=== PATIENT | male | born 1955 | race Caucasian/White ===

== ENCOUNTER 2017-06-23 18:09 | Observation (INO) | payer BC ==
[~2017-06-23] VITALS: Ht 185.4 cm; Wt 92.1 kg
--- NOTE | 2017-06-23 18:40 | Emergency Room Report ---
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 N Clinical Suspician of Infection? N Mental Status: 1 - Regular (Normal Baseline) Sepsis Risk:Low Sepsis Risk Have you (or family members/close friends) recently traveled outside the [place]? N If Yes, where/when: Have you had exposure to infectious disease within the past month? N TB? Other? Specify: Patient complains of LEFT flank pain and LEFT mid quadrant area pain sharp achy in nature and states it feels like past kidney stones he has achy comes and goes and started this afternoon at 1 PM associated with nausea and vomiting. (Jose Flowers MD) ALLERGIES Coded Allergies: No Known Allergies (06/23/17) Home Medications Reported Medications NEBIVOLOL HCL (Bystolic) 5 MG PO DAILY #90 Rosuvastatin Calcium 10 MG PO DAILY #45 (Flako ZULUAGA,Leilani Clinton) History Medical History General Angina: No IA: No Hypertension? Yes Hyperlipidemia? No CHF? No COPD? No Asthma? No CVA? No Seizures? No Diabetes? No Stones? Yes GB Disease: No MRSA? No TB? No Cancer? No Immunization Hx DT/Tetanus Unknown Surgical Hx Previous Surgery?Y BACK SURG GB SURG Social History Smoking Hx Smoker: Never Smoker Tobacco: No Alcohol Alcohol: No (Jose Flowers MD) Review of Systems All Other Systems Reviewed and Negative (Jose Flowers MD) Physical Exam Vital Signs Vital Signs Date Time Temp Pulse Resp B/P Pulse O2 O2 Flow FiO2 Ox Delivery Rate 06/23 2017 98.2 74 20 136/74 99 06/23 1902 20 06/23 1822 97.8 90 18 98 General Appearance: Nontoxic Head: Normocephalic, without obvious abnormality, atraumatic. Eyes: conjunctiva/corneas clear ENT: Mucous membranes moist. Neck: No jugular venous distention. Cardiac: regular rate and rhythm Lungs: Clear to auscultation bilaterally Abdomen: left mid quadrant tenderness, Nondistended, positive bowel sounds , no rebound : left CVA tenderness Extremities: no edema Musculoskeletal: No chest wall tenderness Skin: No rashes or lesions to exposed skin. Neurologic: Alert. No gross focal deficits Psychiatric: Normal affect (Kristie ZULUAGA, Jose) General Appearance mild distress Respiratory Status No: respiratory distress. Cardiovascular normal exam Neurologic alert (Jose Flowers MD) Medical Decision Making LABS/Meds/Orders Pt receiving controlled substance in ED? No Comment 640pm initial workup has been ordered. kidney stone versus other. will transfer care to oncoming MD in 20 minutes. Results/Orders Laboratory Tests 06/23/171899: Troponin I < 0.02 06/23/171899: Sodium 137, Potassium 3.4 L, Chloride 103, Carbon Dioxide 25, BUN 22 H, Creatinine 1.4 H, Estimated Creat Clear 69, Estimated GFR (MDRD) 51, Glucose 143 H, Calcium 9.6, Total Bilirubin 0.5, AST 24, ALT 37, Alkaline Phosphatase 59, Total Protein 8.0, Albumin 4.2, Globulin 3.8 H, Albumin/Globulin Ratio 1.1, Lipase 129, WBC 15.0 H, RBC 4.43 L, Hgb 13.6 L, Hct 41.7 L, MCV 94.1, RDW 12.3, Plt Count 290, MPV 9.7, Gran % 90.6 H, Gran # 13.6 H, Total Counted 100, Lymphocytes % 4.7 L, Monocytes % 3.1, Eosinophils % 1.4, Basophils % 0.2, Neutrophils 91 H, Lymphocytes (Manual) 5 L, Lymphocytes # 0.7, Monocytes ( Manual) 4, Monocytes # 0.5, Eosinophils # 0.2, Basophils # 0.0, Platelet Estimate NORMAL, PUBS MCHC 32.5, MCH 30.6 06/23/171834: Urine Color YELLOW, Urine Appearance CLEAR, Urine pH 6.0, Ur Specific [place] 1.025, Urine Protein NEGATIVE, Urine Ketones 1+ H, Urine Blood NEGATIVE, Urine Nitrate NEGATIVE, Urine Bilirubin NEGATIVE, Urine Urobilinogen 0.2, Ur Leukocyte Esterase NEGATIVE, Urine WBC OCC, Ur Squamous Epith Cells OCC, Urine Glucose NEGATIVE Current Medication Orders Sig/Maureen Start time Last Medication Dose Route Stop Time Status Admin Ketorolac 30 MG ONCE ONE 06/23 1900 DC 06/23 Tromethamine IV 06/23 Ketorolac 0 .STK-MED ONE 09/29 1831 DC Tromethamine .ROUTE Ondansetron HCl 0 .STK-MED ONE 06/23 183 DC .ROUTE Sodium Chloride 1,000 ML .STK-MED ONE 06/23 183 DC IV Ondansetron HCl 4 MG ONCE ONE 06/23 1830 DC 06/23 IV 06/23 1831 1902 Sodium Chloride 10 ML PRN PRN 06/23 1830 AC IV 06/24 1826 Sodium Chloride 1,000 ML .Q1H1M 06/23 1830 DC 06/23 IV 06/23 1930 1902 Sodium Chloride 10 ML PRN PRN 06/23 1830 AC IV 06/24 1827 Orders Procedure Date/time Status DIET-NOTHING BY MOUTH 06/24 B Active DIFFERENTIAL-WBC 06/[address] ABD & PELVIS W/O CONTRAST 06/[address] ABD/PELVIS REQ 06/23 184 Complete ELECTROCARDIOGRAM REQUEST 06/23 183 Active CHEST(2 VIEWS-NOT PORTABLE) 06/23 183 Active TROPONIN I 06/23 183 Complete IV SALINE LOCK 06/23 182 Active URINALYSIS/COMPLETE 06/23 1825 Complete LIPASE 06/23 182 Complete CBC WITH AUTO DIFF 06/23 182 Complete CHEM 12 PROFILE 06/23 182 Complete Departure Departure Disposition Still a Patient Condition STABLE ED Critical Care Critical Care No (Jose Flowers MD) Departure Time of Disposition 2041 Clinical Impression Primary Impression: Flank pain Secondary Impressions: Abdominal pain Qualifiers: Abdominal location: left lower quadrant Qualified Code: R10.32 - Left lower quadrant pain Appendicitis Qualifiers: Appendicitis type: acute appendicitis Acute appendicitis type: unspecified acute appendicitis type Qualified Code: K35.80 - Unspecified acute appendicitis Referrals Vinicio Lopez MD (Leilani Arriola MD) at 195 at 204
[2017-06-23 18:57] LABS: URINE BILIRUBIN - DIPSTICK NEGATIVE (NEG); URINE BLOOD NEGATIVE (NEG)
[2017-06-23 19:00] LABS: URINE SQUAMOUS CELLS OCC #/hpf (OCC)
[2017-06-23 19:10] LABS: HEMOGLOBIN 13.6 g/dL (14.1-18.0); LYMPH # 0.7 K/mm3 (0.7-4.5); LYMPH % 4.7 % (10-50)
[2017-06-23 19:51] LABS: NEUTROPHILS 91 % (42-76)
[2017-06-23] MEDS ORDERED: ROSUVASTATIN CA10 MG PO (20:37)
[2017-06-23] MEDS ORDERED: BYSTOLIC5 MG PO (20:37)
[2017-06-23 21:18] VITALS: BP 125/84
[2017-06-24] VITALS (16 sets, daily range): BP systolic 107–139; BP diastolic 64–84
[2017-06-24 07:09] LABS: HEMOGLOBIN 12.6 g/dL (14.1-18.0); LYMPH # 1.3 K/mm3 (0.7-4.5); LYMPH % 13.9 % (10-50)
--- NOTE | 2017-06-24 07:27 | CONSULT NOTE ---
Standard Demographics Patient Demo Date of Consultation: 06/24/17 Referring Provider: Juan Mccormack MD Reason for Consultation: Abdominal Pain PRIMARY DIAGNOSIS: APPENDICITIS Allergies: Coded Allergies: No Known Allergies (06/23/17) History of Present Illness Chief Complaint: Abdominal Pain History of Present Illness: Patient is a pleasant 61-year-old white male. He was in his usual state of health until 1 PM yesterday on 06/23/17. At that point he developed left-sided flank pain. He was concerned that he may have a kidney stone. This persisted and he presented to the emergency department. He was found have a mild leukocytosis and underwent CT scan. This revealed findings of a prominent appendix with appendicoliths without appendiceal stranding. Surgery was contacted and recommendations were for admission given the atypical presentation. Past Medical History Reports: hypertension. Surgical History Previous Surgery?Y BACK SURG GB SURG Allergies Coded Allergies: No Known Allergies (06/23/17) Medications: Reported Medications NEBIVOLOL HCL (Bystolic) 5 MG PO DAILY #90 Rosuvastatin Calcium 10 MG PO DAILY #45 Smoking Hx Tobacco: No Smoker: Never Smoker Type: N/A Packs/day: N/A Are you/the child exposed to second-hand smoke: No Alcohol Alcohol: No Hx of Drug Use Drug Use? No Review of Systems Constitutional No: chills. Skin No: abrasions. Immune/allergy No: anaphalaxis. Eyes No: vision loss. ENT No: hearing loss. Respiratory No: shortness of air. Cardiovascular No: chest pain. GI Positive for: abdomen, constipation. (male) No: hematuria. Musculoskeletal No: extremity swelling. Heme No: adenopathy. Endocrine No: cold intolerance. Neurological No: change in LOC. Physical Exam Exam General appearance no acute distress, alert Respiratory clear to auscultation Cardiovascular normal heart sounds Abdomen soft Findings/Data Tender in RIGHT lower quadrant Plan Plan: This morning patient states that his tenderness and discomfort is more in the RIGHT lower quadrant. On examination he has some minor guarding without rebound over McBurney's point. Given the findings on examination at this time and CT scan he most likely has evolving appendicitis. Plan for appendectomy. at 0729
--- NOTE | 2017-06-24 08:40 | HISTORY AND PHYSICAL REPORT ---
Demographics: Admit date: 06/23/17 Chief complaint: Lower quadrant abdominal pain PRIMARY DIAGNOSIS: APPENDICITIS Allergies: Coded Allergies: No Known Allergies (06/23/17) History of present illness: History of present illness: 61-year-old white male, with very mild hypertension and hyperlipidemia this been under good control. Otherwise extremely healthy. Presented to the emergency department with 3 days of vague abdominal pain that had localized into the RIGHT lower quadrant. CT scan was done because of his suspicious clinical presentation which showed evidence of early appendicitis and patient was admitted to hospital for pain control and surgical consultation. Past medical history: Family HX Diabetes No CAD Yes Hypertension Yes Hyperlipidemia Yes Cancer No TB No Immunization HX DT/Tetanus 5-10 Years Ago Pneumonia Received In Past TB Test in last year No General Angina: No SC: No Hypertension? Yes Hyperlipidemia? No CHF? No COPD? No Asthma? No CVA? No Seizures? No Diabetes? No Stones? Yes GB Disease: No MRSA? No TB? No Cancer? No Past Surgical HX Previous Surgery?Y BACK SURG GB SURG Current home meds: Reported Medications NEBIVOLOL HCL (Bystolic) 5 MG PO DAILY #90 Rosuvastatin Calcium 10 MG PO DAILY #45 Social Hx: Smoking HX Tobacco No Type N/A Packs/day N/A Are you/the child exposed to second-hand smoke: No Alcohol Alcohol: No Hx of Drug Use Drug Use? No Patien't marital status is Patient's support system is excellent Review of systems: Constitutional diaphoresis. Respiratory No: no symptoms reported. Cardiovascular No no symptoms reported Gastrointestinal/Abdominal see HPI Genitourinary No: no symptoms reported. Musculoskeletal No: no symptoms reported. Neurological No: see HPI. Exam: Lab data for last 24 hours: Laboratory Tests 06/24/17 0630: Sodium 141, Potassium 4.0, Chloride 108 H, Carbon Dioxide 26, BUN 18, Creatinine 1.3, Estimated Creat Clear 77, Estimated GFR (MDRD) 56, Glucose 98, Calcium 8.6, WBC 9.5, RBC 4.07 L, Hgb 12.6 L, Hct 38.0 L, MCV 93.2, RDW 12.5, Plt Count 254, MPV 9.1, Gran % 77.7, Gran # 7.4, Lymphocytes % 13.9, Monocytes % 7.5, Eosinophils % 0.7, Basophils % 0.1, Lymphocytes # 1.3, Monocytes # 0.7, Eosinophils # 0.1, Basophils # 0.0, PUBS MCHC 33.3, MCH 31.1 06/23/171899: Troponin I < 0.02 06/23/171899: Sodium 137, Potassium 3.4 L, Chloride 103, Carbon Dioxide 25, BUN 22 H, Creatinine 1.4 H, Estimated Creat Clear 69, Estimated GFR (MDRD) 51, Glucose 143 H, Calcium 9.6, Total Bilirubin 0.5, AST 24, ALT 37, Alkaline Phosphatase 59, Total Protein 8.0, Albumin 4.2, Globulin 3.8 H, Albumin/Globulin Ratio 1.1, Lipase 129, WBC 15.0 H, RBC 4.43 L, Hgb 13.6 L, Hct 41.7 L, MCV 94.1, RDW 12.3, Plt Count 290, MPV 9.7, Gran % 90.6 H, Gran # 13.6 H, Total Counted 100, Lymphocytes % 4.7 L, Monocytes % 3.1, Eosinophils % 1.4, Basophils % 0.2, Neutrophils 91 H, Lymphocytes (Manual) 5 L, Lymphocytes # 0.7, Monocytes ( Manual) 4, Monocytes # 0.5, Eosinophils # 0.2, Basophils # 0.0, Platelet Estimate NORMAL, PUBS MCHC 32.5, MCH 30.6 06/23/171834: Urine Color YELLOW, Urine Appearance CLEAR, Urine pH 6.0, Ur Specific [place] 1.025, Urine Protein NEGATIVE, Urine Ketones 1+ H, Urine Blood NEGATIVE, Urine Nitrate NEGATIVE, Urine Bilirubin NEGATIVE, Urine Urobilinogen 0.2, Ur Leukocyte Esterase NEGATIVE, Urine WBC OCC, Ur Squamous Epith Cells OCC, Urine Glucose NEGATIVE Admission vital signs: 1ST Vital Signs Result Date Time Pulse Ox 98 06/23 1822 Temp 97.8 06/23 1822 Pulse 90 06/23 1822 Resp 18 06/23 1822 B/P 136/74 06/23 2017 O2 Delivery ROOM AIR 06/23 2118 Exam General appearance: normal appearance, alert, awake Eyes: normal exam, anicteric ENT: normal exam, mucous membranes moist Neck: normal inspection, non-tender, no carotid bruit, no JVD Cardiovascular: normal exam Respiratory: normal exam, clear to auscultation ABD: non-distended, rebound, tenderness (in both lower quadrants) Genitourinary: normal voiding & quantity Extremities: normal exam Musculoskeletal: normal exam Skin: normal exam, intact, normal color Neuro: normal exam, alert, no deficit Plan: Problem List 1. Abdominal pain 2. Appendicitis Plan: Admit to hospital, pain control, surgical consultation. at 0840
--- NOTE | 2017-06-24 10:01 | Anesthesia Record ---
Anesthesia Record Part I Total IV fluids: 1200 EBL (ml): 0 Urine Output: 150 B/P: 122/73 % SaO2: 96 Pulse: 98 Resps: 12 Temp: 97.3 Patient is: Awake, Stable Stable to PACU at: 1000 at 1001
--- NOTE | 2017-06-24 10:01 | Operative Note ---
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 He had relatively sudden onset of left-sided flank pain beginning yesterday on 06/23/17 approximately 1 PM. Patient felt that he may have a kidney stone. He presented to the emergency department later that evening and underwent CT scan of the abdomen and pelvis without any contrast whatsoever. This revealed findings of large appendix with appendicolith without stranding. Surgery was contacted. Given the patient's atypical presentation plan was made for admission for possible early appendicitis. Following morning he had tenderness and pain in the RIGHT lower quadrant. Plan was made to proceed with appendectomy. Findings: Thickened enlarged indurated non-suppurative nonperforated appendicitis. Procedure Description: Consent was obtained and patient was taken to the operating room. He was given preoperative intravenous antibiotics. Marquez catheter was placed after induction of general anesthesia. Abdomen was prepped and draped in standard surgical fashion. Subumbilical skin incision was made and while performing abdominal wall lifted the Veress needle was inserted. CO2 pneumoperitoneum was achieved 15 mmHg. 10/12 mm optical trocar was inserted at the umbilicus. He was positioned in Trendelenburg LEFT side down. 5 mm trocar was inserted in the suprapubic location and 5 mm trochars inserted in the RIGHT upper abdomen. 10 mm laparoscope was replaced with 5 mm 30 degree laparoscope and inserted through the RIGHT upper abdominal trocar site. The appendix was identified at the tip of the cecum. It was indurated and thickened. There was some reactive fluid. Mesoappendix was divided with Rigo ultrasonic harmonic hillary. Appendiceal artery was coagulated with Rigo ultrasonic harmonic hillary and divided. Appendix was dissected down to its base. It was divided at its base with an endoscopic BIANCA linear cutting stapling device. The appendix was placed within an Endo Catch retrieval device and removed from the peritoneal cavity via the umbilical trocar site. There was a very small appendiceal stump and to prevent possible future stump appendicitis a couple of Endoloops were placed at the proximal appendiceal stump. These were 0 PDS Endoloops. There was good hemostasis. Pericecal location and pelvis were irrigated and aspirated until clear. Trochars were removed as CO2 pneumoperitoneum was evacuated. Fascia at the umbilicus was closed with a 0 Vicryl [id number] suture. Local anesthetic.. Skin incisions were closed with 4-0 Monocryl in a subcuticular fashion. Steri-Strips and clean dry sterile dressings were applied. EBL (ml): 15 Anesthesia: GETA Complications: None immediately apparent Specimens: Appendix Disposition Disposition: To PACU at 1001
--- NOTE | 2017-06-24 10:01 | Anesthesia Record ---
Anesthesia Record Part II Discharge time: 1030 Destination: Second Floor PACU nurse assessment review? Yes Patient is: Awake, Stable Anesthesia complications? No at 1001
--- NOTE | 2017-06-24 10:35 | RADIOLOGY REPORT PS360 ---
CHEST(2 VIEWS-NOT PORTABLE) HISTORY: pain left abdomen and back chest pain Patient Age: 61 years: Male Ordering Physician: Juan Mccormack MD TECHNIQUE: PA and lateral chest COMPARISON : No prior chest films available CT abdomen included lung bases from today utilized FINDINGS Heart borderline enlarged. No CHF. No vascular congestion. No pleural effusions. No pneumothorax. Lungs well expanded and clear with.Slight increased markings at infrahilar regions bilaterally may reflect some minor atelectasis but unimpressive.. No focal pneumonia Upper lung uriarte are radha an unremarkable. Chest wall and T-spine satisfactory r. IMPRESSION: Nothing definitely acute
--- NOTE | 2017-06-24 10:45 | PHARMACY CLINIC NOTE ---
Patient Demographics Patient Demographics Admission date: 06/23/17 Date: 06/24/17 Time: 1044 Allergies Coded Allergies: No Known Allergies (06/24/17) HEIGHT- FT: 6 IN: 1.00 K.109 VTE General Information Labs: Laboratory Tests 06/24 06/23 0630 1900 Hematology Hgb (14.1 - 18.0 g/dL) 12.6 L 13.6 L Hct (42.0 - 52.0 %) 38.0 L 41.7 L Plt Count (142 - 424 K/mm3) 254 290 Disclaimer The following section includes nursing documentation that has been pulled in for pharmacy review. Patient's VTE score: 1 Patient's VTE Risk: VERY LOW RISK Clinical trial participant? No VTE prophylaxis NQF [id number] VTE prophylaxis ordered? Yes Type of prophylaxis/treatment: ICD at 1044
--- NOTE | 2017-06-24 10:53 | RADIOLOGY REPORT PS360 ---
CT ABD PELVIS W/O CONTRAST HISTORY: LEFT FLANK PAIN abdominal pain. HISTORY of kidney stones Patient Age: 61 years: Male Ordering Physician: Juan Mccormack MD TECHNIQUE: Helical CT scanning performed through abdomen pelvis with no oral nor IV contrast. COMPARISON :No previous studies FINDINGS Most significant finding is at the appendix. Findings suggest developing acute appendicitis: Multiple appendicoliths are seen within a nondilated appendix. There is a 2 cm length x 10 mm appendicolith seen at the base the appendix near its junction with the cecum. The appendix is markedly dilated up to 18 mm proximal to this. As removed towards the tip of the appendix associated distal appendicoliths.-There are 2 additional adjacent appendicolith seen at the proximal tip of the appendix is measuring 6 mm sizeq.. There is only scant stranding about the base the appendix and where it joins the cecum but otherwise we see no significant periappendiceal inflammation as of yet. Nonetheless if findings are highly suspect for developing acute appendicitis Otherwise at Large bowel, there is mild/ moderate stool seen throughout the colon. Some slight fatty wall thickening of the colon is unimpressive & nonspecific. There are some scattered diverticuli are seen at the left colon and sigmoid colon but no evidence of acute diverticulitis. Small bowel is unremarkable no dilatation or obstruction. No significant pelvic nor mesenteric nor retroperitoneal adenopathy. . Small slight hiatal hernia noted. Lung bases appear clear. Given limitations of no IV contrast the liver, spleen, pancreas, adrenals unremarkable. Gallbladder is been removed. Kidneys. No urinary tract calculi nor obstruction. Osseous. Degenerative disc space narrowing L4/5 with mild dextroscoliosis. Pelvis. Generous size prostate measuring 5.5 cm transverse, mildly indents the base the bladder. Bladder wall appears upper normal thickness. IMPRESSION: 1.. Developing acute appendicitis. Overall Concur with C report Prominent fluid filled dilated appendix with multiple appendicoliths-both at proximal & distal appendix.. Scant Early stranding about the base the appendix.. Findings reflect likely obstructed appendix due to large appendicolith at its base, with now developing acute appendicitis.. Clinical correlation required. 2. A few diverticuli at left colon sigmoid colon but no diverticulitis 3 Small moderate-sized sliding hiatal hernia. 4 moderate size prostate 5.5 cm diameter.
[2017-06-25 00:11] VITALS: BP 140/76
[2017-06-25 03:59] VITALS: BP 130/78
--- NOTE | 2017-06-25 07:46 | ACUTE CARE PROGRESS NOTE (QUA) ---
Progress Notes Subjective Date 06/25/17 Time 0743 Note Patient underwent successful laparoscopic appendectomy yesterday with findings of an inflamed appendix but had not ruptured. Patient reports no pain this morning. He is tolerating liquid diet. Flank pain that brought him into the hospital is absent He looks well. He setting up in a chair. There is no abdominal tenderness. Await surgical evaluation. Can likely be discharged to home. Objective Findings Last VS-Temp:97.8 B/P:130/78 Pulse:61 Resp:18 SaO2:95 ROOM AIR Last weight lbs:203 oz:1 K.109 Method:Bed Scales Assessment/Plan Problem List 1. Appendicitis Qualifiers: Appendicitis type: acute appendicitis Acute appendicitis type: unspecified acute appendicitis type Qualified Code: K35.80 - Unspecified acute appendicitis 2. Abdominal pain Qualifiers: Abdominal location: left lower quadrant Qualified Code: R10.32 - Left lower quadrant pain Patient condition Improving This inpt stay is expected to cross 2 MNs from start of care No
[2017-06-25 08:00] VITALS: BP 121/76
[2017-06-25 09:09] VITALS: BP 121/76
--- NOTE | 2017-06-25 09:13 | SURGEON PROGRESS NOTE ---
Subjective data Subjective data: NATTY LEES is a 61 M .Patient denies complaint of nausea and vomitting.He reports his last pain level as 0 on a 0-10 pain scale. Feels very well. No complaints whatsoever. No pain at all. Tolerating full iquid. Assessment findings Assessment Exam General appearance: normal appearance, alert ABD: soft Patient plan Plan: DC at 0912
--- NOTE | 2017-06-25 09:20 | DISCHARGE SUMMARY STANDARD ---
Demographics Admit date: 06/23/17 Discharge date: 06/25/17 History of present illness History of present illness 61-year-old white male, with very mild hypertension and hyperlipidemia this been under good control. Otherwise extremely healthy. He presented to the emergency department in the evening of 06/23/17 with a several hour history of LEFT flank pain. He thought he may have a kidney stone. He underwent CT scan without contrast which revealed no evidence of any kidney stone but revealed an enlarged appendix with appendicolith without stranding. He did have a leukocytosis. Surgery was contacted. Given the atypical presentation plan was made for admission for possible early appendicitis. Hospital Course Hospital Course: Patient was admitted to medical surgical floor. He had no issues overnight. Following morning, several hours after admission, he was reexamined and had more pain and tenderness in the RIGHT lower quadrant over McBurney's point. Plan was made for appendectomy. He was taken to the operating room and underwent successful laparoscopic appendectomy. Is found to have an inflamed but nonperforated non-suppurative appendicitis. Please see operative dictation for complete details. Postoperatively he was given full liquid diet and continued on Unasyn perioperatively. He had absolutely no problems overnight. Tolerated full liquid diet without difficulty. Had no postoperative pain whatsoever into the pain medications. Plan was made for discharge home on postoperative day number 1. Discharge diagnoses Problem List 1. Appendicitis 2. Abdominal pain Medications Medications: Discharge meds are as noted. No new medications prescribed Follow up Follow up in office in: 2 WEEKS with: Vinicio Lopez MD at 0913
[2017-06-25 10:32] VITALS: BP 121/76
== END 2017-06-25 10:30 | disposition home or self-care (01) ==
LOC: ER 18:09 → 2ND 20:48 → ER 20:48 → 2ND 20:49
PROVIDERS: Emergency Medicine; Surgery
PROC: 0DTJ4ZZ Resection of Appendix, Percutaneous Endoscopic Approach (ICD-10-PCS; principal; 2017-06-24 09:00)
DX: K35.80 Unspecified acute appendicitis (principal); I10 Essential (primary) hypertension
CPT/HCPCS: G0378; J2405; Q2038